=== PATIENT | male | born 1975 | race Caucasian/White ===

== ENCOUNTER 2023-10-25 12:18 | Emergency (ER) | payer BC ==
[~2023-10-25] VITALS: Ht 182.9 cm; Wt 80.4 kg
[2023-10-25] MEDS ORDERED: KETOROLAC TROMETHAMINE INJ 30 MG/ML VIAL ONE (12:40)
[2023-10-25] MEDS ORDERED: CYCLOBENZAPRINE 10 MG TABLET ONE (12:41)
[2023-10-25] MEDS ORDERED: methylPREDNISolone SOD SUCC 40 MG/ML VIAL ONE (12:41)
[2023-10-25] MEDS ORDERED: KETOROLAC TROMETHAMINE INJ 30 MG/ML VIAL IM ONE (13:00)
[2023-10-25] MEDS ORDERED: CYCLOBENZAPRINE 10 MG TABLET PO ONE (13:00)
[2023-10-25] MEDS ORDERED: methylPREDNISolone SOD SUCC 40 MG/ML VIAL IM ONE (13:00)
[2023-10-25] MEDS ORDERED: ONDANSETRON 4 MG TAB.RAPDIS ONE (13:34)
[2023-10-25] MEDS ORDERED: HYDROMORPHONE 1 MG/1 ML DISP.SYRIN ONE (13:34)
[2023-10-25] MEDS ORDERED: HYDROMORPHONE 1 MG/1 ML DISP.SYRIN IM ONE (14:00)
[2023-10-25] MEDS ORDERED: ONDANSETRON 4 MG TAB.RAPDIS SL ONE (14:00)
[2023-10-25 15:00] VITALS: BP 120/78; TEMP 98.2; O2SAT 99
== END 2023-10-25 14:45 | disposition home or self-care (01) ==
LOC: ER 12:20
DX: G89.29 Other chronic pain (principal); M54.50 Low back pain, unspecified
CPT/HCPCS: 99284; 96372 ×2; J2920; J1885; Q0162; J1170